=== PATIENT | male | born 1990 | race Caucasian/White ===

== ENCOUNTER 2017-12-12 16:27 | Emergency (ER) | payer SELFPAY ==
[~2017-12-12] VITALS: Ht 177.8 cm; Wt 98.2 kg
[2017-12-12 16:31] VITALS: BP_SYST 118; BP_SYST 159; BP_DIAS 77; BP_DIAS 90; PULSE 110; RESP 16; TEMP 98.2; O2SAT 98
== END 2017-12-12 17:13 | disposition left against medical advice (07) ==
LOC: PHEFT 16:27
DX: J00 Acute nasopharyngitis [common cold] (principal)
CPT/HCPCS: 99281